=== PATIENT | male | born 1990 | race African-American/Black ===

== ENCOUNTER 2017-04-04 10:43 | Emergency (ER) | payer MEDICAID ==
[2017-04-04 12:58] LABS: ABSOLUTE BASOPHILS # (AUTO) 0.1 10^3/uL (0.0-0.2); ABSOLUTE EOSINOPHILS # (AUTO) 0.1 10^3/uL (0.0-0.6); ABSOLUTE LYMPHOCYTES (AUTO) 1.3 10^3/uL (0.5-4.7); ABSOLUTE MONOCYTES (AUTO) 0.4 10^3/uL (0.1-1.4); ABSOLUTE NEUT (AUTO) 3.2 10^3/uL (1.7-8.2); BASOPHILS % (AUTO) 1.4 % (0-2); EOSINOPHILS % (AUTO) 1.4 % (0-6); HEMOGLOBIN 15.2 g/dL (13.5-17.0); HGB HCT DIFFERENCE -0.4; LYMPHOCYTES % (AUTO) 26.5 % (13-45); MEAN CORPUSCULAR HEMOGLOBIN 25.7 pg (27.0-33.4); MEAN CORPUSCULAR VOLUME 78 fl (80-97); MONOCYTES % (AUTO) 7.7 % (3-13); RED CELL DISTRIBUTION WIDTH 14.5 % (11.5-14.0); WHITE BLOOD COUNT 5.1 10^3/uL (4.0-10.5)
[2017-04-04 13:18] LABS: ALANINE AMINOTRANSFERASE 33 U/L (21-72); ALBUMIN 4.4 g/dL (3.5-5.0); ALCOHOL < 10 mg/dL (NONE DETECTED); ALKALINE PHOSPHATASE 85 U/L (38-126); ANION GAP 12 (5-19); ASPARTATE AMINO TRANSFERASE 19 U/L (17-59); BILIRUBIN,DIRECT 0.3 mg/dL (0.0-0.4); BILIRUBIN,TOTAL 0.4 mg/dL (0.2-1.3); BLOOD UREA NITROGEN 9 mg/dL (7-20); CALCIUM 10.2 mg/dL (8.4-10.2); CARBON DIOXIDE 27 mmol/L (22-30); CHLORIDE 101 mmol/L (98-107); CREATININE RESULT 0.93 mg/dL (0.52-1.25); GLUCOSE 91 mg/dL (75-110); POTASSIUM 4.4 mmol/L (3.6-5.0); TOTAL PROTEIN 8.2 g/dL (6.3-8.2)
[2017-04-04 13:57] LABS: APPEARANCE,URINE CLEAR; BILIRUBIN,URINE NEGATIVE (NEGATIVE); GLUCOSE, URINE NEGATIVE (NEGATIVE); KETONES,URINE NEGATIVE (NEGATIVE); LEUKOCYTE ESTERASE,URINE NEGATIVE (NEGATIVE); NITRITE,URINE NEGATIVE (NEGATIVE); PROTEIN,URINE NEGATIVE (NEGATIVE); URINE SPECIFIC GRAVITY 1.018; UROBILINOGEN,URINE NEGATIVE mg/dL (<2.0)
[2017-04-04 14:02] LABS: URINE BARBITURATES SCREEN NEGATIVE; URINE METHADONE SCREEN NEGATIVE; URINE OPIATES LOW NEGATIVE; URINE PHENCYCLIDINE SCREEN NEGATIVE
[2017-04-04] MEDS ORDERED: BENZTROPINE MESYLATE 1 MG TABLET PO SCH (18:45)
[2017-04-04] MEDS ORDERED: HALOPERIDOL 5 MG TABLET PO SCH (18:45)
--- NOTE | 2017-04-04 18:45 | ER Document Report ---
ED General - General Chief Complaint: Psych Problem Stated Complaint: PSYCH EVALUATION Time Seen by Provider: 04/04/17 10:49 TRAVEL OUTSIDE OF THE [place] IN LAST 30 DAYS: No - HPI Patient complains to provider of: Psychiatric evaluation Notes: Patient has a history of schizophrenia coming in for evaluation of increased aggressive behavior. Patient states that he was acting aggressive towards family members. Patient states he was doing this and that that would not allow him to let his point across. Patient states he did not need to be threatening. Patient states he is on Haldol Decanoate and did receive a shot on the march 31. Patient apparently has become increasingly aggressive over the last 3 days patient states he understands that he is becoming increasingly aggressive and agitated. Otherwise patient denies any homicidal suicidal ideation. - Related Data Allergies/Adverse Reactions: No Known Allergies Allergy (Verified 06/24/15 09:06) Past Medical History - Social History Smoking Status: Current Every Day Smoker Chew tobacco use (# tins/day): No Frequency of alcohol use: None Drug Abuse: None Family History: Reviewed & Not Pertinent Psychiatric Medical History: Reports: Hx Bipolar Disorder, Hx Schizophrenia Review of Systems - Review of Systems Constitutional: No symptoms reported EENT: No symptoms reported Cardiovascular: No symptoms reported Respiratory: No symptoms reported Gastrointestinal: No symptoms reported Genitourinary: No symptoms reported Male Genitourinary: No symptoms reported Musculoskeletal: No symptoms reported Skin: No symptoms reported Hematologic/Lymphatic: No symptoms reported Neurological/Psychological: Other - Psychiatric evaluation for aggressive behavior -: Yes All other systems reviewed and negative Physical Exam - Vital signs Vitals: Temp Pulse Resp BP Pulse Ox 98.7 F 109 H 20 140/92 H 98 04/04/17 10:48 04/04/17 10:48 04/04/17 10:48 04/04/17 10:48 04/04/17 10:48 Interpretation: Normal - General General appearance: Appears well, Alert - HEENT Head: Normocephalic, Atraumatic Eyes: Normal Pupils: PERRL - Respiratory Respiratory status: No respiratory distress Chest status: Nontender Breath sounds: Normal Chest palpation: Normal - Cardiovascular Rhythm: Regular Heart sounds: Normal auscultation Murmur: No - Abdominal Inspection: Normal Distension: No distension Bowel sounds: Normal Tenderness: Nontender Organomegaly: No organomegaly - Back Back: Normal, Nontender - Extremities General upper extremity: Normal inspection, Nontender, Normal color, Normal ROM , Normal temperature General lower extremity: Normal inspection, Nontender, Normal color, Normal ROM , Normal temperature, Normal weight bearing. No: Javan's sign - Neurological Neuro grossly intact: Yes Cognition: Normal Orientation: AAOx4 [place] Coma Scale Eye Opening: Spontaneous [place] Coma Scale Verbal: Oriented [place] Coma Scale Motor: Obeys Commands [place] Coma Scale Total: 15 Speech: Normal Motor strength normal: LUE, RUE, LLE, RLE Sensory: Normal - Psychological Associated symptoms: Flat affect - Skin Skin Temperature: Warm Skin Moisture: Dry Skin Color: Normal Course - Re-evaluation Re-evalutation: 04/04/17 18:44 Patient seen for psychiatric evaluation. At this time patient will be placed on IVC paperwork is that patient does not be a threat to others with his increasing aggressive behavior. Patient is otherwise medically cleared for evaluation of her psychiatric team. - Vital Signs Vital signs: Temp Pulse Resp BP Pulse Ox 98.7 F 109 H 20 140/92 H 98 04/04/17 10:48 04/04/17 10:48 04/04/17 10:48 04/04/17 10:48 04/04/17 10:48 - Laboratory Result Diagrams: 04/04/17 10:50 04/04/17 10:50 Laboratory results interpreted by me: 04/04/17 04/04/17 10:50 10:50 RBC 5.90 H MCV 78 L MCH 25.7 L RDW 14.5 H Salicylates < 1.0 L Acetaminophen < 10 L Discharge - Discharge Clinical Impression: Aggressive behavior, At risk for violence directed towards self or others Condition: Fair Disposition: PSYCH HOSP/UNIT
[2017-04-04 20:39] VITALS: BP 122/75
--- NOTE | 2017-04-05 00:09 | EKG REPORT ---
SEVERITY:- BORDERLINE ECG - SINUS RHYTHM BORDERLINE T ABNORMALITIES, INFERIOR LEADS : Confirmed by: Jarad Richey 05-Apr-2017 00:09:28
[2017-04-05] MEDS ORDERED: LORAZEPAM INJ 2 MG/1 ML VIAL IM ONE (01:57)
[2017-04-05] MEDS ORDERED: DIPHENHYDRAMINE HCL 50 MG/ML VIAL IM ONE (01:57)
[2017-04-05] MEDS ORDERED: ZIPRASIDONE MESYLATE INJ/PF 20 MG SDV IM ONE (01:58)
[2017-04-05] MEDS ORDERED: BACITRACIN ZINC OINTMENT 15 GM TP ONE (01:59)
[2017-04-05] MEDS ORDERED: DIPH/PERTUSS(ACELL)/TETANUS VAC/PF 0.5 ML SYR (>=10YO) IM ONE (02:00)
--- NOTE | 2017-04-05 10:36 | PSYCHOLOGICAL NOTE ---
Psych Note - Psych Note Psych Note: Patient is a 26 year old male who presented this morning with c/o paranoia, A/H , and delusions. Patient is "diagnosed with Schizophrenia and Bipolar Disorder" per his mother and EMR. Patient today has been sleeping throughout the day. Mother states the patient has been increasingly agitated at home, and paranoid. Mother states the patient patient has been questioning everyone, to include the intent of her 3 year old grandson who lives with them. Mother reports the patient thought she was drugging him when she was giving him headache medicine. Mother reports the patient is usually calm and cooperative and gets along with everyone. Mother states he has not slept more than 2 hours at a time in 2 weeks. Mother states he has been pacing the house, checking windows and vents, etc. Mother states she did check his weekly pill container and it appeared there were some pills missing, but when she asked him about it, he told her his doctor said it would not effect him if he missed a couple. Mother states he has never been aggressive towards her, and today when he wsa arguing, she was fearful. She states he has ACTT Services and receives the Haldol Deconate q4 weeks, most recently administered the beginning of this month. Unspecified Schizophrenia Unspecified Bipolar Disorder, per history Patient is recommended to remain in the ER under IVC for further evaluation and disposition.
== END 2017-04-04 23:20 ==
LOC: ER 10:43
DX: R45.5 Hostility (principal); F25.9 Schizoaffective disorder, unspecified; F31.9 Bipolar disorder, unspecified; F17.200 Nicotine dependence, unspecified, uncomplicated
CPT/HCPCS: 93005; 99281; 36415; 80307 ×4; 85025; 80053; 81001; 93010; J3490

== ENCOUNTER 2017-04-05 01:45 | Emergency (ER) | payer MEDICAID ==
--- NOTE | 2017-04-05 04:42 | ER Document Report ---
ED General - General Chief Complaint: Suicidal Ideation Stated Complaint: SUICIDAL IDEATIONS Time Seen by Provider: 04/05/17 04:32 Mode of Arrival: Carried Information source: Patient, Law Enforcement TRAVEL OUTSIDE OF THE [place] IN LAST 30 DAYS: No - HPI Notes: Patient was seen previously and had IVC papers, but left AGAINST MEDICAL ADVICE by either the ED security and escaped on foot. After 2 hours, the patient was found several miles from the hospital, still wearing his scrubs and socks. Patient fell down while trying to get away from the police and sustained a skin avulsion to the right heel and an abrasion and contusion to the forehead. Patient on arrival denies any musculoskeletal pain or neck pain or back pain or headache. No nausea or vomiting. Patient has a history of schizophrenia and previously came in yesterday due to increased aggressive behavior. Patient states that he was acting aggressive towards family members. Patient states he was doing this and that that would not allow him to let his point across. Patient states he did not need to be threatening. Patient states he is on Haldol Decanoate and did receive a shot on the march 31. Patient apparently has become increasingly aggressive over the last 3 days patient states he understands that he is becoming increasingly aggressive and agitated. Otherwise patient denies any homicidal suicidal ideation. Patient is unaware of his last tetanus. - Related Data Allergies/Adverse Reactions: No Known Allergies Allergy (Verified 06/24/15 09:06) Past Medical History - General Information source: Patient - Social History Smoking Status: Unknown if Ever Smoked Chew tobacco use (# tins/day): No Frequency of alcohol use: None Drug Abuse: None Lives with: Family Family History: Reviewed & Not Pertinent Psychiatric Medical History: Reports: Hx Bipolar Disorder, Hx Schizophrenia Review of Systems - Review of Systems Notes: REVIEW OF SYSTEMS: CONSTITUTIONAL : Denies fever, chills, or sweats. Denies recent illness. EENT: Denies eye, ear, throat, or mouth pain or symptoms. Denies nasal or sinus congestion or discharge. Denies throat, tongue, or mouth swelling or difficulty swallowing. CARDIOVASCULAR: Denies chest pain. Denies palpitations or racing or irregular heart beat. Denies ankle edema. RESPIRATORY: Denies cough, cold, or chest congestion. Denies shortness of breath, difficulty breathing, or wheezing. GASTROINTESTINAL: Denies abdominal pain or distention. Denies nausea, vomiting , or diarrhea. Denies blood in vomitus, stools, or per rectum. Denies black, tarry stools. Denies constipation. GENITOURINARY: Denies difficulty urinating, painful urination, burning, frequency, blood in urine, or discharge. MUSCULOSKELETAL: Denies back or neck pain or stiffness. Denies joint pain or swelling. SKIN: Reports right heel skin avulsion and forehead contusion and abrasion. HEMATOLOGIC : Denies easy bruising or bleeding. LYMPHATIC: Denies swollen, enlarged glands. NEUROLOGICAL: Denies confusion or altered mental status. Denies passing out or loss of consciousness. Denies dizziness or lightheadedness. Denies headache. Denies weakness or paralysis or loss of use of either side. Denies problems with gait or speech. Denies sensory loss, numbness, or tingling. Denies seizures. PSYCHIATRIC: Denies depression, suicidal ideation, or homicidal ideation. Patient admits to hearing voices and admits to aggressive behavior. ALL OTHER SYSTEMS REVIEWED AND NEGATIVE. Dictation was performed using [employer] voice recognition software Physical Exam - Vital signs Vitals: Pulse Resp BP Pulse Ox 94 16 116/68 95 04/05/17 04:17 04/05/17 04:17 04/05/17 04:17 04/05/17 04:17 - Notes Notes: PHYSICAL EXAMINATION: GENERAL: Well-appearing, well-nourished and in no acute distress. HEAD: Small forehead contusion and abrasion. No bony tenderness. Patient denies any pain. EYES: Pupils equal round and reactive to light, extraocular movements intact, sclera anicteric, conjunctiva are normal. ENT: Nares patent, oropharynx clear without exudates. Moist mucous membranes. NECK: Normal range of motion, supple without lymphadenopathy LUNGS: Breath sounds clear to auscultation bilaterally and equal. No wheezes rales or rhonchi. HEART: Regular rate and rhythm without murmurs ABDOMEN: Soft, nontender, nondistended abdomen. No guarding, no rebound. No masses appreciated. Musculoskeletal: Normal range of motion, no pitting or edema. No cyanosis. NEUROLOGICAL: Cranial nerves grossly intact. Normal speech, normal gait. Normal sensory, motor exams PSYCH: Somewhat pressured speech with flat affect and patient appears to be responding to internal stimuli and voices intermittently. There is some flight of ideas. SKIN: Warm, Dry, normal turgor. Patient has a contusion and abrasion on the forehead. Patient has a skin avulsion of the epidermal callus area 3 cm on the right heel. There is no bony tenderness or deformity to that region. Course - Re-evaluation Re-evalutation: 04/05/17 06:27 Patient was given a tetanus shot. Wound areas were cleaned and antibiotic ointment was applied. The right heel wound was cleaned and irrigated and then was cut from its base. Patient tolerated the procedure well. Complications none. Blood loss none. The wound was cleaned and antibiotic ointment was applied. Patient was medically cleared for psychiatric evaluation. There is no clinical suggestion for significant head injury or other abnormality or fracture. Patient had previous blood work performed in has been alert and interactive without any complaint or report of headache. Patient was given a shot of Ativan and Geodon, as his previous dose of Haldol was not successful in controlling some of his aggressive behavior and agitation. 04/05/17 06:32 - Vital Signs Vital signs: Temp Pulse Resp BP Pulse Ox 94 16 116/68 95 04/05/17 04:17 04/05/17 04:17 04/05/17 04:17 04/05/17 04:17 Discharge - Discharge Clinical Impression: Abrasion, Skin avulsion Schizophrenia Qualifiers: Schizophrenia type: unspecified Qualified Code(s): F20.9 - Schizophrenia, unspecified Head injuries Qualifiers: Encounter type: initial encounter Qualified Code(s): S09.90XA - Unspecified injury of head, initial encounter Contusion Qualifiers: Encounter type: initial encounter Contusion area: head Contusion of head detail : scalp Qualified Code(s): S00.03XA - Contusion of scalp, initial encounter Condition: Stable
[2017-04-05] MEDS ORDERED: DIPH/PERTUSS(ACELL)/TETANUS VAC/PF 0.5 ML SYR (>=10YO) IM ONE (05:35)
--- NOTE | 2017-04-05 10:53 | ER Document Report ---
Doctor's Note Notes: 04/05/17 10:52 As the rounding physician for our psychiatric patients, I have reviewed the chart, vitals, lab work. Patient has been examined and noted to be stable at this time . I am awaiting mental health in [facility] regarding placement.
[2017-04-05] MEDS ORDERED: BENZTROPINE MESYLATE 1 MG TABLET PO SCH (11:00)
[2017-04-05] MEDS ORDERED: HALOPERIDOL 5 MG TABLET PO SCH (11:00)
[2017-04-05] MEDS ORDERED: HALOPERIDOL 5 MG TABLET PO ONE (13:13)
[2017-04-05] MEDS ORDERED: DIVALPROEX SODIUM 500 MG TAB.SR.24H PO SCH (14:00)
[2017-04-05] MEDS ORDERED: DIPHENHYDRAMINE HCL 50 MG/ML VIAL ONE (14:31)
[2017-04-05] MEDS ORDERED: LORAZEPAM INJ 2 MG/1 ML VIAL ONE (14:31)
[2017-04-05] MEDS ORDERED: ZIPRASIDONE MESYLATE INJ/PF 20 MG SDV IM ONE (14:31)
[2017-04-05] MEDS ORDERED: IBUPROFEN 600 MG TABLET PO ONE (17:39)
[2017-04-05] MEDS: HALOPERIDOL 5 MG TABLET PO SCH (17:51)
[2017-04-05] MEDS: DIVALPROEX SODIUM 500 MG TAB.SR.24H PO SCH (17:51)
[2017-04-05] MEDS ORDERED: ZOLPIDEM TARTRATE 5 MG TABLET PO ONE (23:18)
[2017-04-06] MEDS: DIVALPROEX SODIUM 500 MG TAB.SR.24H PO SCH ×2 (06:40→17:14)
[2017-04-06] MEDS: HALOPERIDOL 5 MG TABLET PO SCH ×2 (09:33→17:14)
--- NOTE | 2017-04-06 12:01 | ER Document Report ---
ED Psych Disorder / Suicide - General Chief Complaint: Suicidal Ideation Stated Complaint: SUICIDAL IDEATIONS Time Seen by Provider: 04/05/17 04:32 Mode of Arrival: Carried TRAVEL OUTSIDE OF THE [place] IN LAST 30 DAYS: No - HPI Notes: Patient was seen previously and had IVC papers, but left AGAINST MEDICAL ADVICE by either the ED security and escaped on foot. After 2 hours, the patient was found several miles from the hospital, still wearing his scrubs and socks. Patient fell down while trying to get away from the police and sustained a skin avulsion to the right heel and an abrasion and contusion to the forehead. Patient on arrival denies any musculoskeletal pain or neck pain or back pain or headache. No nausea or vomiting. As previously noted: Patient has a history of schizophrenia and previously came in yesterday due to increased aggressive behavior. Patient states that he was acting aggressive towards family members. Patient states he was doing this and that that would not allow him to let his point across. Patient states he did not need to be threatening. Patient states he is on Haldol Decanoate and did receive a shot on the march 31. Patient apparently has become increasingly aggressive over the last 3 days patient states he understands that he is becoming increasingly aggressive and agitated. Otherwise patient denies any homicidal suicidal ideation. Clinician conducted checking with patient Patient states he feels a lot calmer and feels comfortable. Patient discloses he does not remember why he is here. Patient is alert and orientated to person place and time. Mood is euthymic with congruent affect. Patient denies suicidal and homicidal ideation. Patient denies current auditory and visual hallucinations; patient is not demonstrating any behaviors congruent with responding to internal stimuli. No delusions are noted. Thought process is organized and linear. Conversational within rate tone and prosody. Eye contact was well-maintained. Intellectual abilities appear to be within average range attention and concentration good. Insight, judgment, control are fair. Unspecified Schizophrenia per history Unspecified Bipolar Disorder, per history R/O Schizoaffective Disorder, Bipolar Type- Clinician notes this diagnosis would better encompass diagnosis history; however, due to the acute ED setting it is unclear if the patient has had a mood episode concurrently with active- phase symptoms. Impression\\plan: Patient is recommended to rescind of IVC and is considered psychiatrically clear for discharge. Patient no longer meet IVC criteria per [place] GS 122C. Patient denies suicidal homicidal ideation. Patient is not demonstrating any behavior congruent to responding to internal stimuli i.e. making good eye contact, thought process is organized and linear, and conversational speech was within normal rate tone and prosody. It appears the patient has not been medication compliant. At higher level of care through ACT Team. patient is recommended to follow with outpatient provider for mental health. Dr. Calloway was consulted on the care and management of this patient; attending physician is in agreement with recommendations and disposition. - Related Data Allergies/Adverse Reactions: No Known Allergies Allergy (Verified 06/24/15 09:06) Past Medical History - General Information source: Patient - Social History Smoking Status: Unknown if Ever Smoked Chew tobacco use (# tins/day): No Frequency of alcohol use: None Drug Abuse: None Lives with: Family Family History: Reviewed & Not Pertinent Psychiatric Medical History: Reports: Hx Bipolar Disorder, Hx Schizophrenia Physical Exam - Vital signs Vitals: Pulse Resp BP Pulse Ox 94 16 116/68 95 04/05/17 04:17 04/05/17 04:17 04/05/17 04:17 04/05/17 04:17 Course - Vital Signs Vital signs: Temp Pulse Resp BP Pulse Ox 98.0 F 82 18 135/79 H 99 04/05/17 17:26 04/06/17 06:16 04/06/17 06:16 04/06/17 06:16 04/06/17 06:16 Discharge - Discharge Clinical Impression: Abrasion, Skin avulsion Schizophrenia Qualifiers: Schizophrenia type: unspecified Qualified Code(s): F20.9 - Schizophrenia, unspecified Head injuries Qualifiers: Encounter type: initial encounter Qualified Code(s): S09.90XA - Unspecified injury of head, initial encounter Contusion Qualifiers: Encounter type: initial encounter Contusion area: head Contusion of head detail : scalp Qualified Code(s): S00.03XA - Contusion of scalp, initial encounter Condition: Stable Disposition: HOME, SELF-CARE Additional Instructions: Bipolar Disorder Bipolar disorder is also called manic-depressive disorder. Depression alternates with brain hyperactivity called steve. Each phase lasts from several days to a few weeks. We don't know exactly what causes bipolar disorder , but it's treatable. During the "manic phase," you may feel elated and energetic. You may have racing thoughts, rapid speech, increased activity, and grandiose ideas. During this time, you may not realize how poor your judgement is. Inappropriate spending, drug abuse, excessive alcohol use, marriage problems, and irresponsible sexual behavior are common during the manic phase. During the "depressive phase," you might feel depressed, guilty, worthless , fatigued, and unable to concentrate. You might have thoughts of suicide. Good treatments are available for bipolar disorder. [place] is a classic drug for bipolar disorder, and is still often useful. If the manic phase is very mild, an antidepressant alone can be prescribed. If the manic phase is very severe, an antipsychotic medicine (such as Haldol) may be needed. The treatment must be matched to your symptoms, so it's important to work closely with your psychiatric care provider. Contact your physician, the hospital emergency center, crisis line, or your counsellor if you are losing control or having self-destructive thoughts. Schizophrenia Schizophrenia is a chemical disorder that affects how the brain functions. The exact cause is unknown, but it tends to run in families. It is NOT caused by emotional trauma. Schizophrenia causes disordered thinking, including unusual beliefs and inability to "process" happenings around the patient. Patients with schizophrenia benefit greatly from medicine. These medicines are called antipsychotics. Never stop the medicine without the doctor 's approval. Counselling may help the patient deal with his disease. Schizophrenics require a very ordered environment. Stresses and sudden changes may bring out symptoms. Drugs and alcohol abuse may become problems. Contact the counsellor or crisis line if there are thoughts of suicide or of harming others, or if you become aware of unusual thoughts or beliefs You are recommended to follow up with your ACT Team within 3-5 days. AT ANY TIME, IF YOUR SYMPTOMS CHANGE SIGNIFICANTLY OR WORSEN OR YOU DEVELOP NEW SYMPTOMS, RETURN TO THE EMERGENCY DEPARTMENT IMMEDIATELY FOR RE-EVALUATION. OUR GOAL IS TO PROVIDE EXCELLENT MEDICAL CARE! WE HOPE THAT WE HAVE MET YOUR EXPECTATIONS DURING YOUR EMERGENCY DEPARTMENT VISIT AND THAT YOU FEEL YOU HAVE RECEIVED EXCELLENT CARE! Referrals: [facility] - Follow up in 3-5 days
--- NOTE | 2017-04-06 12:48 | ER Document Report ---
Doctor's Note Notes: 04/06/17 12:47 Rounds: Chart reviewed and patient interview. Patient has underlying schizophrenia and bipolar disorder. Being evaluated for suicidal thoughts. Lab studies are normal. Vital signs of all been normal except for 1 heart rate of 132. Patient tried to leave the facility and was walking or running outside and ended up with some blisters on his feet. He has an intact blister on the bottom of his left heel and a intact blister of the distal right foot under the greater MP joint. He has a very large denuded blister of the right heel which has a bloody margin, does not appear dirty and does not appear to have any retained foreign body. We will cleanse it daily and apply bacitracin ointment. Patient appears to be medically stable for transfer or discharge. Channing Sanchez MD
[2017-04-06 18:46] VITALS: BP 138/80
== END 2017-04-06 19:04 | disposition home or self-care (01) ==
LOC: ER 01:45
DX: F20.9 Schizophrenia, unspecified (principal); F31.9 Bipolar disorder, unspecified; S91.301A Unspecified open wound, right foot, initial encounter; S00.83XA Contusion of other part of head, initial encounter; S00.03XA Contusion of scalp, initial encounter; W19.XXXA Unspecified fall, initial encounter; Y93.02 Activity, running; Z79.899 Other long term (current) drug therapy; S90.822A Blister (nonthermal), left foot, initial encounter; S90.821A Blister (nonthermal), right foot, initial encounter; X58.XXXA Exposure to other specified factors, initial encounter; Z23 Encounter for immunization
CPT/HCPCS: 99285; 90471; 90715; J3490 ×7; J1200; J2060; J3486

== ENCOUNTER → 2020-10-09 | Outpatient (CLI) | payer MEDICAID ==
[2020-10-09 15:12] LABS: ABSOLUTE MONOCYTES (AUTO) 0.2 10^3/uL (0.1-1.4); ABSOLUTE NEUT (AUTO) 3.1 10^3/uL (1.7-8.2); BASOPHILS % (AUTO) 1.1 % (0-2); EOSINOPHILS % (AUTO) 0.5 % (0-6); HEMATOCRIT 45.5 % (37.9-51.0); HEMOGLOBIN 15.5 g/dL (13.5-17.0); LYMPHOCYTES % (AUTO) 22.1 % (13-45); MEAN CORPUSCULAR HGB CONC 34.1 g/dL (32.0-36.0); MEAN CORPUSCULAR VOLUME 79 fl (80-97); MONOCYTES % (AUTO) 5.5 % (3-13); PLATELET COUNT 328 10^3/uL (150-450); RED BLOOD COUNT 5.76 10^6/uL (4.35-5.55); RED CELL DISTRIBUTION WIDTH 13.5 % (11.5-14.0); SEGMENTED NEUTROPHILS % (AUTO) 70.8 % (42-78); TOTAL CELLS COUNTED % (AUTO) 100 %; WHITE BLOOD COUNT 4.4 10^3/uL (4.0-10.5)
[2020-10-09 15:35] LABS: ALBUMIN 4.7 g/dL (3.5-5.0); ALKALINE PHOSPHATASE 71 U/L (38-126); ANION GAP 9 (5-19); ASPARTATE AMINO TRANSFERASE 38 U/L (17-59); BILIRUBIN,DIRECT 0.1 mg/dL (0.0-0.4); BILIRUBIN,TOTAL 0.6 mg/dL (0.2-1.3); BLOOD UREA NITROGEN 10 mg/dL (7-20); CALCIUM 9.9 mg/dL (8.4-10.2); CARBON DIOXIDE 27 mmol/L (22-30); CHLORIDE 101 mmol/L (98-107); CHOLESTEROL 183.14 mg/dL (0-200); GLUCOSE 93 mg/dL (75-110); POTASSIUM 4.6 mmol/L (3.6-5.0); TOTAL PROTEIN 7.9 g/dL (6.3-8.2); TRIGLYCERIDES 99 mg/dL (<150)
[2020-10-09 15:46] LABS: DIRECT LDL 114 mg/dL (<100)
== END ==
LOC: OD 13:51
PROVIDERS: ATTEND Physician Assistant
DX: I10 Essential (primary) hypertension (principal)
CPT/HCPCS: 36415; 80053; 80061; 85025